=== PATIENT | female | born 1935 | race Caucasian/White ===

== ENCOUNTER 2022-07-20 19:12 | Emergency (ER) | payer MEDICARE, SELFPAY ==
--- NOTE | 2022-07-20 20:18 | PC.NURSE ---
Pt called for triage at 1999 with no response and then again at 2015 with no response.
== END 2022-07-20 20:41 | disposition left against medical advice (07) ==
PROVIDERS: PCP Family Medicine Adolescent Medicine
DX: Z53.21 Procedure and treatment not carried out due to patient leaving prior to being seen by health care provider (principal)
CPT/HCPCS: 99199